=== PATIENT | male | born 1975 | race Caucasian/White ===

== ENCOUNTER 2020-07-31 13:45 | Emergency (ER) | payer SELFPAY ==
[~2020-07-31] VITALS: Ht 175.2 cm; Wt 87.0 kg
[2020-07-31 14:28] LABS: BASOPHILS # (AUTO) 0.1 10^3/uL (0.0-0.1); BASOPHILS % (AUTO) 1 % (0-10); EOSINOPHILS # (AUTO) 0.1 10^3/uL (0.0-0.3); EOSINOPHILS % (AUTO) 1 % (0-10); HEMATOCRIT 43 % (40-54); HEMOGLOBIN 13.8 g/dL (13.3-17.7); LYMPHOCYTES # (AUTO) 1.7 10^3/uL (1.0-4.0); LYMPHOCYTES % (AUTO) 21 % (12-44); MEAN CORPUSCULAR HEMOGLOBIN 30 pg (25-34); MEAN CORPUSCULAR HGB CONC 32 g/dL (32-36); MEAN CORPUSCULAR VOLUME 93 fL (80-99); MEAN PLATELET VOLUME 9.4 fL (9.0-12.2); MONOCYTES # (AUTO) 0.7 10^3/uL (0.0-1.0); MONOCYTES % (AUTO) 8 % (0-12); NEUTROPHILS # (AUTO) 5.5 10^3/uL (1.8-7.8); NEUTROPHILS % (AUTO) 69 % (42-75); PLATELET COUNT 306 10^3/uL (130-400)
[2020-07-31 14:29] LABS: ALBUMIN 4.1 GM/DL (3.2-4.5); CHLORIDE 108 MMOL/L (98-107); POTASSIUM 3.8 MMOL/L (3.6-5.0); SODIUM 141 MMOL/L (135-145)
[2020-07-31 14:30] LABS: CALCIUM 9.4 MG/DL (8.5-10.1)
[2020-07-31 14:31] LABS: GLUCOSE 183 MG/DL (70-105); TOTAL PROTEIN 6.9 GM/DL (6.4-8.2)
[2020-07-31 14:33] LABS: BILIRUBIN,TOTAL 0.3 MG/DL (0.1-1.0); CARBON DIOXIDE 25 MMOL/L (21-32)
[2020-07-31 14:35] LABS: ALKALINE PHOSPHATASE 78 U/L (40-136); CREATININE SERUM 1.16 MG/DL (0.60-1.30); GFR ESTIMATED > 60
[2020-07-31 14:36] LABS: BUN/CREATININE RATIO 11
[2020-07-31 14:38] LABS: ALANINE AMINOTRANSFERASE 38 U/L (0-55)
[2020-07-31 14:39] LABS: BILIRUBIN,URINE NEGATIVE (NEGATIVE); CLARITY,URINE CLEAR; COLOR,URINE YELLOW; GLUCOSE, URINE (UA) NEGATIVE (NEGATIVE); KETONES,URINE NEGATIVE (NEGATIVE); LEUKOCYTE ESTERASE ,URINE NEGATIVE (NEGATIVE); NITRITE,URINE NEGATIVE (NEGATIVE); PROTEIN,URINE NEGATIVE (NEGATIVE)
[2020-07-31] MEDS ORDERED: IOHEXOL 350 MG/ML 100 ML (OMNIPAQUE 350) VIAL IV ONE (14:45)
[2020-07-31] MEDS ORDERED: HOLD METFORMIN - RECEIVED CONTRAST 20 ML VIAL IV SCH (14:45)
[2020-07-31] MEDS ORDERED: NS 100 ML (IVPB) BAG IV ONE (14:45)
[2020-07-31 14:51] LABS: FIBRIN DEGRADATION PRODUCTS <= 0.27 UG/ML (0.00-0.49); INR 0.9 (0.8-1.4); PARTIAL THROMBOPLASTIN TIME 28 SEC (24-35); PROTHROMBIN TIME PATIENT 12.4 SEC (12.2-14.7)
[2020-07-31 14:52] LABS: BACTERIA,URINE TRACE /HPF; SQUAMOUS EPITHELIAL CELL,UR RARE /HPF; WBC,URINE RARE /HPF
--- NOTE | 2020-07-31 15:06 | Diagnostic Imaging Report ---
INDICATION: Left-sided weakness. TIME OF EXAM: 2:46 PM. COMPARISON: No prior studies are available for comparison. FINDINGS: The heart size is normal. The pulmonary vascularity is unremarkable. The lungs are clear. No infiltrate, effusion, or pneumothorax is detected. IMPRESSION: No acute cardiopulmonary process is detected. Dictated by: Dictated on workstation # [id number]
--- NOTE | 2020-07-31 15:15 | Diagnostic Imaging Report ---
PROCEDURE: CT angiography of the head and CT angiography of the neck with and without contrast. TECHNIQUE: Contiguous noncontrast images were obtained from the skull base through the vertex. After intravenous contrast administration, helical CT angiography of the neck was performed. Source data was reformatted into 3D MIP projections. Delayed post contrast acquisition was also obtained. Auto Exposure Controls were utilized during the CT exam to meet ALARA standards for radiation dose reduction. INDICATION: Left weakness, headache, and dizziness. FINDINGS: There appears to be normal three-vessel branching pattern arising from the aortic arch. Carotid and vertebral arteries are patent through the neck without evidence of stenosis, occlusion, or filling defect. There is no evidence of abnormal contrast enhancement in the neck. Tiny subcentimeter cyst is noted in the upper pole of the left lobe of the thyroid gland. Very mild degenerative findings are seen in the cervical spine. Anterior, middle, and posterior cerebral arteries are patent without evidence of stenosis, occlusion, or filling defect. There is no evidence of aneurysm or vascular malformation. Left P1 segment appears to be small or absent. No abnormal contrast enhancement is identified in the brain. IMPRESSION: No CTA evidence of great vessel abnormality in the head or neck. In particular, no stenosis, occlusion, or filling defect is identified. Dictated by: Dictated on workstation # [id number]
--- NOTE | 2020-07-31 16:12 | ED Neurological Problem ---
General Chief Complaint: Neuro-Stroke Like Symptoms Stated Complaint: SOB/LETHARGIC/WEAK Nursing Triage Note: Pt ambulatory to rm 4. Pt sent to ED from [facility]. Pt reports at approximately L hand and L foot felt cold and pt had difficulty breathing. 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 Pt is concerned about high blood pressure and reports having personal problems. 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 He presented to the [facility] clinic and was referred to the emergency room due to concern for stroke. Verbal report was received from clinic staff. They reported measurable weakness in the left hand at that time. Patient states all symptoms have now resolved. His symptoms started with a cold feeling of discomfort in the left hand and left foot. He then developed the weakness that persisted until he was seen at the clinic. He has risk factors for stroke which include diabetes and hypertension. He reports a similar episode happened on July 26 that resolved without residual. He reports blood sugar during the first episode was 70 and 86 after the second episode. Patient had Covid in January from which he has recovered. He reports recent "personal problems" that have worsened his blood pressure. He is concerned about blood pressure elevation. Allergies and Home Medications Allergies Coded Allergies: No Known Drug Allergies (Unverified , 07/31/20) Home Medications Atorvastatin Calcium 40 Mg Tablet, 40 MG PO DAILY Prescribed by: EBONI JAVIER on 07/31/20 1614 Clopidogrel Bisulfate 75 Mg Tablet, 75 MG PO DAILY Prescribed by: EBONI JAVIER on 07/31/20 1614 Patient Home Medication List Home Medication List Reviewed: Yes Review of Systems Review of Systems Constitutional: no symptoms reported Eyes: No Symptoms Reported Ears, Nose, Mouth, Throat: no symptoms reported Respiratory: no symptoms reported Cardiovascular: no symptoms reported Gastrointestinal: no symptoms reported Genitourinary: no symptoms reported Musculoskeletal: no symptoms reported Skin: no symptoms reported Psychiatric/Neurological: See HPI Endocrine: No Symptoms Reported Hematologic/Lymphatic: No Symptoms Reported Past Glcslil-Lbapuq-Cdoxub Hx Patient Social History Alcohol Use: Denies Use Recreational Drug Use: No 2nd Hand Smoke Exposure: No Recent Foreign Travel: No Contact w/Someone Who Travel: No Recent Infectious Disease Expo: No Recent Hopitalizations: No Past Medical History Surgeries: Yes Abdominal (Hernia) Cardiac: Yes High Cholesterol, Hypertension Reproductive Disorders: No Gastrointestinal: No Musculoskeletal: Yes Rheumatoid Arthritis Endocrine: Yes Diabetes, Non-Insulin dep HEENT: No Cancer: No Psychosocial: No Integumentary: No Physical Exam Vital Signs Vital Signs - First Documented 07/31/20 13:47 Temp 36.4 Pulse 82 Resp 18 B/P (MAP) 145/101 (116) Pulse Ox 97 O2 Delivery Room Air Capillary Refill : Less Than 3 Seconds Height, Weight, BMI Height: '" Weight: lbs. oz. 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, no motor/sensory deficits, alert, normal mood/affect, oriented x 3 Crainal Nerves: normal hearing, normal speech, PERRL Coordination/Gait: normal finger to nose (Normal [id number]), normal gait Motor/Sensory: no motor deficit, no sensory deficit Skin: normal color, warm/dry Stroke NIH Stroke Scale Assessment Level of Consciousness: 0=Alert (0), Level of Consciousness-Questions: 0=Answers both month/age (0), LOC Commands: 0=Performs both tasks (0), Visual Dhillon: 0=No visual loss (0), Facial Movement (Facial Paresis): 0=Normal symmetrical mnt (0), Motor Function-Arms Right: 0=No drift (0), Motor Function-Arms Left: 0=No drift (0), Motor Function-Legs Right: 0=No drift (0), Motor Function-Legs Left: 0=No drift (0), Limb Ataxia: 0=Absent (0), Sensory: 0=Normal:no loss (0), Best Language: 0=No aphasia (0), Dysarthria: 0=Normal (0), Extinction & Inattention: 0=No abnormality (0), Total: 0 Progress/Results/Core Measures Results/Orders Lab Results Laboratory Tests Test 07/31/20 13:54 07/31/20 14:25 Range/Units White Blood Count 8.0 4.3-11.0 10^3/uL Red Blood Count 4.58 4.30-5.52 10^6/uL Hemoglobin 13.8 13.3-17.7 g/dL Hematocrit 43 40-54 % Mean Corpuscular Volume 93 80-99 fL Mean Corpuscular Hemoglobin 30 25-34 pg Mean Corpuscular Hemoglobin Concent 32 32-36 g/dL Red Cell Distribution Width 14.0 10.0-14.5 % Platelet Count 306 130-400 10^3/uL Mean Platelet Volume 9.4 9.0-12.2 fL Immature Granulocyte % (Auto) 0 % Neutrophils (%) (Auto) 69 42-75 % Lymphocytes (%) (Auto) 21 12-44 % Monocytes (%) (Auto) 8 0-12 % Eosinophils (%) (Auto) 1 0-10 % Basophils (%) (Auto) 1 0-10 % Neutrophils # (Auto) 5.5 1.8-7.8 10^3/uL Lymphocytes # (Auto) 1.7 1.0-4.0 10^3/uL Monocytes # (Auto) 0.7 0.0-1.0 10^3/uL Eosinophils # (Auto) 0.1 0.0-0.3 10^3/uL Basophils # (Auto) 0.1 0.0-0.1 10^3/uL Immature Granulocyte # (Auto) 0.0 0.0-0.1 10^3/uL Prothrombin Time 12.4 12.2-14.7 SEC INR Comment 0.9 0.8-1.4 Activated Partial Thromboplast Time 28 24-35 SEC D-Dimer <= 0.27 0.00-0.49 UG/ML Sodium Level 141 135-145 MMOL/L Potassium Level 3.8 3.6-5.0 MMOL/L Chloride Level 108 H 98-107 MMOL/L Carbon Dioxide Level 25 21-32 MMOL/L Anion Gap 8 5-14 MMOL/L Blood Urea Nitrogen 13 7-18 MG/DL Creatinine 1.16 0.60-1.30 MG/DL Estimat Glomerular Filtration Rate > 60 BUN/Creatinine Ratio 11 Glucose Level 183 H 70-105 MG/DL Calcium Level 9.4 8.5-10.1 MG/DL Corrected Calcium 9.3 8.5-10.1 MG/DL Total Bilirubin 0.3 0.1-1.0 MG/DL Aspartate Amino Transf (AST/SGOT) 21 5-34 U/L Alanine Aminotransferase (ALT/SGPT) 38 0-55 U/L Alkaline Phosphatase 78 40-136 U/L Troponin I < 0.028 <0.028 NG/ML Total Protein 6.9 6.4-8.2 GM/DL Albumin 4.1 3.2-4.5 GM/DL Urine Color YELLOW Urine Clarity CLEAR Urine pH 6.0 5-9 Urine Specific [place] 1.015 L 1.016-1.022 Urine Protein NEGATIVE NEGATIVE Urine Glucose (UA) NEGATIVE NEGATIVE Urine Ketones NEGATIVE NEGATIVE Urine Nitrite NEGATIVE NEGATIVE Urine Bilirubin NEGATIVE NEGATIVE Urine Urobilinogen 0.2 < = 1.0 MG/DL Urine Leukocyte Esterase NEGATIVE NEGATIVE Urine RBC (Auto) NEGATIVE NEGATIVE Urine RBC NONE /HPF Urine WBC RARE /HPF Urine Squamous Epithelial Cells RARE /HPF Urine Crystals NONE /LPF Urine Bacteria TRACE /HPF Urine Casts NONE /LPF Urine Mucus NEGATIVE /LPF Urine Culture Indicated NO My Orders Orders - EBNOI CARDENAS MD Cbc With Automated Diff (07/31/20 14:17) Protime With Inr (07/31/20 14:17) Partial Thromboplastin Time (07/31/20 14:17) Comprehensive Metabolic Panel (07/31/20 14:17) Fibrin Degradation Products (07/31/20 14:17) Troponin I (07/31/20 14:17) Ua Culture If Indicated (07/31/20 14:17) Chest 1 View, Ap/Pa Only (07/31/20 14:17) Ekg Tracing (07/31/20 14:17) Nothing By Mouth (07/31/20 Lunch) Accucheck Stat ONCE (07/31/20 14:17) Ed Iv/Invasive Line Start (07/31/20 14:17) Ed Iv/Invasive Line Start (07/31/20 14:17) Vital Signs Stroke Patient Q15M (07/31/20 14:17) O2 (07/31/20 14:17) Intake & Output 06,14,22 (07/31/20 14:17) Monitor-Rhythm Ecg Trace Only (07/31/20 14:17) Dysphagia Screening Tool (07/31/20 14:17) Ct Angio Head/Neck (07/31/20 14:17) Aspirin Tablet (Aspirin Tablet) (07/31/20 16:15) Clopidogrel Tablet (Plavix Tablet) (07/31/20 16:15) Medications Given in ED Current Medications Medications Dose Ordered Sig/Mona Route Start Time Stop Time Status Last Admin Dose Admin Aspirin 325 mg ONCE ONCE PO 07/31/20 16:15 07/31/20 16:19 DC 07/31/20 16:24 325 MG Clopidogrel Bisulfate 75 mg ONCE ONCE PO 07/31/20 16:15 07/31/20 16:19 DC 07/31/20 16:27 75 MG Iohexol 75 ml ONCE ONCE IV 07/31/20 14:45 07/31/20 15:00 DC 07/31/20 15:06 75 ML Sodium Chloride 100 ml ONCE ONCE IV 07/31/20 14:45 07/31/20 15:00 DC 07/31/20 15:06 100 ML Vital Signs/I&O 07/31/20 07/31/20 13:47 16:33 Temp 36.4 36.4 Pulse 82 82 Resp 18 18 B/P (MAP) 145/101 (116) 128/83 (116) Pulse Ox 97 97 O2 Delivery Room Air Room Air Blood Pressure Mean: 116 Progress Progress Note : Progress Note Stroke activation was paged upon patient arrival. He was not considered for thrombolytic therapy as he was past the 4.5-hour window. NIH stroke score was 0 which also is a contraindication for thrombolytic therapy. He remained free of neurologic deficits throughout his ER stay. Work-up was unremarkable. His ABCD 2 score was 5. For this reason neurology was consulted. I discussed the case with Dr. Denney, stroke neurologist at [facility]. He recommended Plavix therapy x3 weeks and continuous aspirin therapy as well as high-dose statin therapy. He recommended completing the stroke work-up with MRI and echocardiogram within 1 week. I discussed this with the patient and suggested inpatient observation overnight so that MRI and echo could be obtained promptly. Patient will need financial assistance to obtain these as an outpatient. After discussing the situation, patient elects to be discharged from the ER at work on obtained a echo and MRI on an outpatient basis. This was discussed with Dr. Hinton with the [facility] clinic. Patient received aspirin and Plavix prior to discharge. Initial ECG Impression Date: Jul 31, 2020 Initial ECG Impression Time: 13:48 Initial ECG Rate: 84 Initial ECG Rhythm: Normal Sinus Comment Normal sinus rhythm with no ischemic ST elevation or depression. Early repolarization pattern noted. No abnormal intervals or axis deviation. Diagnostic Imaging Diagonstic Imaging: Xray Plain Films/CT/US/NM/MRI: chest Comments NAME: CARIN [facility]LLOGG [facility] REC#: [id number] PT STATUS: REG ER : 1975 PHYSICIAN: EBONI CARDENAS MD ADMIT DATE: 07/31/20/ER Signed Date of Exam:07/31/20 CHEST 1 VIEW, AP/PA ONLY INDICATION: Left-sided weakness. TIME OF EXAM: 2:46 PM. COMPARISON: No prior studies are available for comparison. FINDINGS: The heart size is normal. The pulmonary vascularity is unremarkable. The lungs are clear. No infiltrate, effusion, or pneumothorax is detected. IMPRESSION: No acute cardiopulmonary process is detected. Dictated by: Dictated on workstation # [id number] Dict: 07/31/20 1503 Trans: 07/31/20 1557 [id number] Interpreted by: BENY CAMERON MD Electronically signed by: BENY CAMERON MD 07/31/20 1557 Diagonstic Imaging: CT Comments [facility] [id number] PT STATUS: REG ER : 1975 PHYSICIAN: EBONI CARDENAS MD ADMIT DATE: 07/31/20/ER Draft Date of Exam:07/31/20 CT ANGIO HEAD/NECK PROCEDURE: CT angiography of the head and CT angiography of the neck with and without contrast. TECHNIQUE: Contiguous noncontrast images were obtained from the skull base through the vertex. After intravenous contrast administration, helical CT angiography of the neck was performed. Source data was reformatted into 3D MIP projections. Delayed post contrast acquisition was also obtained. Auto Exposure Controls were utilized during the CT exam to meet ALARA standards for radiation dose reduction. INDICATION: Left weakness, headache, and dizziness. FINDINGS: There appears to be normal three-vessel branching pattern arising from the aortic arch. Carotid and vertebral arteries are patent through the neck without evidence of stenosis, occlusion, or filling defect. There is no evidence of abnormal contrast enhancement in the neck. Tiny subcentimeter cyst is noted in the upper pole of the left lobe of the thyroid gland. Very mild degenerative findings are seen in the cervical spine. Anterior, middle, and posterior cerebral arteries are patent without evidence of stenosis, occlusion, or filling defect. There is no evidence of aneurysm or vascular malformation. Left P1 segment appears to be small or absent. No abnormal contrast enhancement is identified in the brain. IMPRESSION: No CTA evidence of great vessel abnormality in the head or neck. In particular, no stenosis, occlusion, or filling defect is identified. Dictated on workstation # [id number] Dict: 07/31/20 1507 Trans: 07/31/20 1514 [id number] Interpreted by: RODRIGO ARTEAGA MD Departure Impression Primary Impression: Left-sided weakness Disposition: 01 HOME, SELF-CARE Condition: Improved Departure-Patient Inst. Decision time for Depature: 16:08 Patient Instructions: Transient Ischemic Attack (DC) Add. Discharge Instructions: Your symptoms today and on July 26 may have been related to TIA (transient ischemic attack) the symptoms may be a precursor to a larger, more permanent stroke. It is important that you follow-up with your primary care provider as soon as possible. There are additional studies your primary care provider needs to arrange to complete the stroke work-up. Those studies include MRI of the brain and echocardiogram of the heart. Please return to the emergency room immediately if you develop any further symptoms of stroke which would include numbness or weakness of a body part, difficulty speaking, confusion, drooping of your face, sudden change in eyesight, dizziness or loss of balance, or any other sudden neurologic changes. To help prevent stroke, you should take the following medications: 1. Aspirin 81 mg daily continuously (purchase [id number]) 2. Plavix 75 mg for 3 weeks only 3. Atorvastatin 40 mg daily continuously Continue these medications in addition to any other medications your primary care provider has prescribed. All discharge instructions reviewed with patient and/or family. Voiced understanding. Scripts Atorvastatin Calcium (Atorvastatin Calcium) 40 Mg Tablet 40 MG PO DAILY, #30 TAB Prov: EBONI CARDENAS MD 07/31/20 Clopidogrel Bisulfate (Plavix) 75 Mg Tablet 75 MG PO DAILY, #20 TAB Prov: EBONI CARDENAS MD 07/31/20 Copy Copies To 1: GILBERT HINTON MD, JOSHUA T MD Jul 31, 2020 16:12
[2020-07-31] MEDS ORDERED: ATOR40TA70 PO (16:14)
[2020-07-31] MEDS ORDERED: CLOP75TA69 PO (16:14)
[2020-07-31] MEDS ORDERED: ASPIRIN 325 MG (5 GR) TABLET PO ONE (16:15)
[2020-07-31] MEDS ORDERED: CLOPIDOGREL 75 MG (PLAVIX) TABLET PO ONE (16:15)
[2020-07-31 16:33] VITALS: BP 128/83
== END 2020-07-31 16:30 | disposition home or self-care (01) ==
LOC: ER 13:49
DX: R53.1 Weakness (principal); E78.00 Pure hypercholesterolemia, unspecified
CPT/HCPCS: 36415; 70496; 70498; 71045; 80053; 81000; 84484; 85025; 85379; 85610; 85730; 93005; 93041

== ENCOUNTER → 2020-08-07 | Outpatient (CLI) | payer SELFPAY ==
[~2020-08-07] MED LIST: ATOR40TA70 PO; CLOP75TA69 PO
--- NOTE | 2020-08-07 12:07 | Diagnostic Imaging Report ---
PROCEDURE: MR imaging of the brain without contrast. TECHNIQUE: Multiplanar, multisequence MR imaging of the brain was performed without contrast. INDICATION: History of left-sided weakness. Concern for TIA or stroke. COMPARISON: CTA head and neck on 07/31/2020. Findings: No acute ischemia, mass, or hemorrhage. The ventricles, cortical sulci, and basilar cisterns are symmetric and unremarkable. The sellar and suprasellar regions have a normal appearance. The brainstem and posterior fossa are unremarkable. The paranasal sinuses and mastoid air cells demonstrate normal signal characteristics. The globes and orbits are symmetric and unremarkable. The scalp and calvarium have a normal appearance. Impression: 1. No acute ischemia, mass, or hemorrhage. Dictated by: Dictated on workstation # [id number]
== END ==
LOC: CARD 10:11
PROVIDERS: ATTEND Family Medicine
DX: G45.9 Transient cerebral ischemic attack, unspecified (principal)
CPT/HCPCS: 70551; 93306